=== PATIENT | male | born 1955 | race Two or more races ===

== ENCOUNTER 2025-03-06 12:06 | Emergency (ER) | payer OTHER ==
[~2025-03-06] VITALS: Ht 170.2 cm; Wt 75.0 kg
[2025-03-06 12:06] VITALS: O2SAT 97
[2025-03-06 12:45] LABS: BASOPHILS % 0.4 % (0.0-2.0); EOSINOPHILS % 0.8 % (0.0-5.0); HEMATOCRIT. 47.8 % (42.0-52.0); LYMPHOCYTES % 32.2 % (20.0-50.0); MEAN CORPUSCULAR HEMOGLOBIN 29.9 pg (28.0-32.0); MEAN CORPUSCULAR HGB CONC 33.5 g/dL (31.0-37.0); MEAN CORPUSCULAR VOLUME 89.1 fL (80.0-94.0); MEAN PLATELET VOLUME 7.4 fl (7.4-10.4); MONOCYTES % 9.1 % (2.0-8.0); NEUTROPHILS % 57.5 % (40.0-76.0); PLATELET 243 x1000/uL (130-400); RED BLOOD CELL COUNT 5.36 mill/uL (4.7-6.1); RED CELL DISTRIBUTION WIDTH 15.5 % (11.6-14.6)
[2025-03-06 12:51] LABS: CHLORIDE 107 mEq/L (98-107); SODIUM 138 mEq/L (136-145)
[2025-03-06 12:52] LABS: CALCIUM 9.6 mg/dL (8.7-10.4); CARBON DIOXIDE 22 mEq/L (21-32)
[2025-03-06 12:57] LABS: CREATININE 1.1 mg/dL (0.6-1.3); GLUCOSE 156 mg/dL (70-105); UREA NITROGEN BLOOD 9 mg/dL (9-23)
[2025-03-06 12:58] LABS: TROPONIN I HIGH SENSITIVITY 9 ng/L (3.0-53)
[2025-03-06] MEDS ORDERED: LIDO700A30 TP (14:39)
[2025-03-06] MEDS ORDERED: NAPR-677 MT (14:39)
[2025-03-06] MEDS: LIDOCAINE 5% PATCH TOP ONE (14:50)
[2025-03-06 14:58] VITALS: BP 163/85; PULSE 107; RESP 15; TEMP 37.1; O2SAT 97
== END 2025-03-06 14:59 | disposition home or self-care (01) ==
LOC: ER 12:06
DX: S22.42XA Multiple fractures of ribs, left side, initial encounter for closed fracture (principal); R03.0 Elevated blood-pressure reading, without diagnosis of hypertension; E11.9 Type 2 diabetes mellitus without complications; E78.00 Pure hypercholesterolemia, unspecified; Z98.890 Other specified postprocedural states; Y04.0XXA Assault by unarmed brawl or fight, initial encounter; Y93.89 Activity, other specified; Y92.89 Other specified places as the place of occurrence of the external cause; Y99.8 Other external cause status
CPT/HCPCS: 80048; 85025; 84484; 36415; 71250; 93005; 99284; Z7610; A4606